=== PATIENT | male | born 1950 | race Caucasian/White ===

== ENCOUNTER 2017-01-28 11:20 | Emergency (ER) | payer OTHER ==
[~2017-01-28 11:20] MED LIST: BUSPIRONE HCL10 MG PO; CERTAGEN1 EACH PO; CLARITIN10 MG PO; FEOSOL325 MG PO; GLUCOPHAGE1000 MG PO; LANTUS100 UNIT/1 SQ; LAXATIVE OF CHOICE PO; LOPID600 MG PO; LOVENOX40 MG/0.4 SQ; NOVOLOG100 UNIT/1 SQ; PERCOCET 5/3251 TAB PO; PRILOSEC20 MG PO; SYNTHROID100 MCG PO; TUMS500 MG PO; ZESTRIL40 MG PO
[2017-01-28 11:41] LABS: BASOPHIL 0.1 % (0-2); EOSINOPHIL 0.1 % (0-7); HCT 33.9 % (42.0-52.0); HGB 11.5 g/dl (13.2-18.0); LYMPHOCYTE 5.6 % (15-48); MCH 27.6 pg (25.0-31.0); MCHC 33.9 g/dL (32.0-36.0); MCV 81.3 fL (78.0-100.0); MONOCYTE 6.2 % (0-12); MPV 8.8 fL (6.0-9.5); PLT 346 K/uL (150-400); RBC 4.17 M/uL (4.70-6.00); RDW 14.9 % (11.5-14.0); WBC 19.8 K/uL (4.0-10.5)
[2017-01-28 12:02] LABS: BILIRUBIN NEGATIVE (NEGATIVE); BLOOD 2+ Ery/uL (NEGATIVE); CLARITY CLEAR (CLEAR); COLOR YELLOW (YELLOW); GLUCOSE (U) NORMAL (NORMAL); KETONE (U) 1+ (SMALL) mg/dL (NEGATIVE); LEUKOCYTES NEGATIVE Leu/uL (NEGATIVE); NITRITE POSITIVE (NEGATIVE); PROTEIN 3+ mg/dL (NEGATIVE); SPECIFIC GRAVITY 1.025 (1.001-1.030); pH 5.5 (5.0-9.0)
[2017-01-28 12:04] LABS: BACTERIA 2+; URINARY RBC RARE
[2017-01-28 12:39] LABS: LACTIC ACID 1.7 mmol/L (0.5-2.2)
[2017-01-28 14:07] LABS: BILIRUBIN - TOTAL 0.7 mg/dL (0.1-1.0); CREATININE 1.8 mg/dL (0.7-1.2); POTASSIUM 4.7 mmol/L (3.5-5.1)
== END 2017-01-28 16:29 | disposition home or self-care (01) ==
LOC: FER 11:20
PROVIDERS: Emergency Medicine
DX: N12 Tubulo-interstitial nephritis, not specified as acute or chronic (principal); E11.9 Type 2 diabetes mellitus without complications; E03.9 Hypothyroidism, unspecified; F17.210 Nicotine dependence, cigarettes, uncomplicated; Z88.0 Allergy status to penicillin; Z79.84 Long term (current) use of oral hypoglycemic drugs; Z79.4 Long term (current) use of insulin; Z79.899 Other long term (current) drug therapy
CPT/HCPCS: 36415; 80053; 81001; 82150; 83605; 83690; 85025; 87040; J1170; J1956; J2270; J2405

== ENCOUNTER 2020-12-02 15:03 | Emergency (ER) | payer OTHER ==
[~2020-12-02 15:03] MED LIST changes: +ATIVAN0.5 MG PO; +ELIQUIS2.5 MG PO; +FLOMAX 0.4 MG0.4 MG PO; +LASIX20 MG PO; +LEXAPRO20 MG PO; +NEURONTIN300 MG PO; +PERCOCET 5-3251 EACH PO; -PERCOCET 5/3251 TAB PO; +PROSCAR5 MG PO; +VANCOMYCIN750 MG/250 IV; +XARELTO10 MG PO; +ZANTAC150 MG PO
[2020-12-02 16:26] LABS: BASOPHIL 0.8 % (0-2); HCT 36.6 % (42.0-52.0); HGB 12.5 g/dl (13.2-18.0); LYMPHOCYTE 24.8 % (15-48); MCH 31.4 pg (25.0-31.0); MCHC 34.2 g/dL (32.0-36.0); MONOCYTE 6.8 % (0-12); MPV 9.6 fL (6.0-9.5); NEUTROPHIL 62.5 % (41-80); NRBC 0; PLT 196 K/uL (150-400); RBC 3.98 M/uL (4.70-6.00); RDW 12.2 % (11.5-14.0); WBC 7.8 K/uL (4.0-10.5)
[2020-12-02 16:36] LABS: INR 1.07 (0.9-1.2); PROTHROMBIN TIME 13.2 SECONDS (11.4-13.6)
[2020-12-02 16:37] LABS: PTT 32.4 SECONDS (22.2-34.7)
[2020-12-02 16:45] LABS: ALBUMIN 3.4 g/dL (3.4-5.0); BILIRUBIN - TOTAL 0.3 mg/dL (0.2-1.0); BUN/CREAT RATIO (CALC) 11.5 RATIO; CREATININE 2.08 mg/dL (0.67-1.17); POTASSIUM 3.5 mmol/L (3.5-5.1); TOTAL PROTEIN 7.4 g/dL (6.4-8.2)
[2020-12-02] MEDS ORDERED: LASIX20 MG PO (17:23)
[2020-12-02] MEDS ORDERED: K-DUR20 MEQ PO (17:23)
== END 2020-12-02 17:55 | disposition home or self-care (01) ==
LOC: FER 15:03
PROVIDERS: Emergency Medicine
DX: I12.9 Hypertensive chronic kidney disease with stage 1 through stage 4 chronic kidney disease, or unspecified chronic kidney disease (principal); E11.22 Type 2 diabetes mellitus with diabetic chronic kidney disease; N18.9 Chronic kidney disease, unspecified; F17.200 Nicotine dependence, unspecified, uncomplicated; Z85.038 Personal history of other malignant neoplasm of large intestine; Z88.0 Allergy status to penicillin
CPT/HCPCS: 36415; 71045; 80053; 83880; 84484; 85025; 85610; 85730; 93005; J1940

== ENCOUNTER 2020-12-06 21:07 | Emergency (ER) | payer MEDICARE, OTHER ==
[~2020-12-06 21:07] MED LIST changes: +K-DUR20 MEQ PO
[2020-12-06 22:12] LABS: BASOPHIL 0.7 % (0-2); EOSINOPHIL 5.2 % (0-7); HCT 33.2 % (42.0-52.0); HGB 11.1 g/dl (13.2-18.0); LYMPHOCYTE 23.7 % (15-48); MCH 31.2 pg (25.0-31.0); MCHC 33.4 g/dL (32.0-36.0); MCV 93.3 fL (78.0-100.0); MONOCYTE 7.2 % (0-12); NEUTROPHIL 63.1 % (41-80); NRBC 0; PLT 177 K/uL (150-400); RBC 3.56 M/uL (4.70-6.00); RDW 12.2 % (11.5-14.0); WBC 8.5 K/uL (4.0-10.5)
[2020-12-06 22:17] LABS: INR 1.04 (0.9-1.2); PROTHROMBIN TIME 12.9 SECONDS (11.4-13.6); PTT 34.1 SECONDS (22.2-34.7)
[2020-12-06 22:37] LABS: ALBUMIN 3.2 g/dL (3.4-5.0); BILIRUBIN - TOTAL 0.2 mg/dL (0.2-1.0); BUN/CREAT RATIO (CALC) 14.8 RATIO; CREATININE 2.09 mg/dL (0.67-1.17); GLOBULIN (CALCULATION) 3.8 g/dL; POTASSIUM 3.5 mmol/L (3.5-5.1)
[2020-12-06 22:43] LABS: CKMB 6.7 ng/mL (0.0-3.6)
== END 2020-12-06 23:15 | disposition home or self-care (01) ==
LOC: FER 21:07
PROVIDERS: Emergency Medicine
DX: G62.9 Polyneuropathy, unspecified (principal); N18.9 Chronic kidney disease, unspecified; F17.210 Nicotine dependence, cigarettes, uncomplicated; Z88.0 Allergy status to penicillin; R60.0 Localized edema; Z79.01 Long term (current) use of anticoagulants; Z79.4 Long term (current) use of insulin; Z79.891 Long term (current) use of opiate analgesic; Z79.899 Other long term (current) drug therapy
CPT/HCPCS: 36415; 71046; 80053; 82553; 83880; 84443; 84484; 85025; 85610; 85730; 93005